=== PATIENT | male | born 1950 | race Caucasian/White ===

== ENCOUNTER → 2023-08-21 13:07 | Outpatient (REF) | payer MEDICARE, SELFPAY ==
[2023-08-21 13:41] LABS: % Basophils 0.8 % (0-2); % Eosinophils 1.3 % (0-6); % Immature Granulocytes 0.2 % (0-0.5); % Lymphocytes 26.3 % (20.5-51.1); % Monocytes 8.4 % (1.7-9.3); Absolute Basophils 0.1 10^3/uL (0-0.2); Absolute Eosinophils 0.1 10^3/uL (0-0.7); Absolute Lymphocytes 2.3 10^3/uL (1.2-3.4); Absolute Monocytes 0.7 10^3/uL (0.1-0.6); Absolute Neutrophils 5.4 10^3/uL (1.4-6.5); Hematocrit 41.1 % (39.0-52.0); Hemoglobin 14.6 g/dL (13.0-18.0); Mean Corp Hgb Conc. 35.5 g/dL (33.0-37.0); Mean Platelet Volume 9.4 fL (7.4-10.4); Nucleated Red Blood Cells % 0 % (-); Platelet Count 250 10^3/uL (130-400); Red Blood Cell Count 4.42 10^6/uL (4.70-6.10); Red Cell Dist. Width 13.5 % (11.5-14.5); White Blood Cell Count 8.5 10^3/uL (4.8-10.8)
[2023-08-21 13:54] LABS: ALT (SGPT) 23 U/L (0-50); AST (SGOT) 29 U/L (17-59); Albumin 4.5 g/dl (3.5-5.0); Alkaline Phosphatase 86 U/L (38-126); Direct Bilirubin 0.1 mg/dl (0.0-0.4); Total Bilirubin 1.7 mg/dl (0.2-1.3)
== END ==
LOC: REG 13:07
PROVIDERS: ATTENDING PHYSICIAN Internal Medicine Gastroenterology; FAMILY PHYSICIAN Internal Medicine
DX: R19.4 Change in bowel habit (principal); R17 Unspecified jaundice
CPT/HCPCS: 36415; 80076; 85025

== ENCOUNTER → 2023-09-29 06:31 | Day surgery (SDC) | payer MEDICARE, SELFPAY | LOC: GI 06:31 | PROVIDERS: ATTENDING PHYSICIAN Internal Medicine Gastroenterology; FAMILY PHYSICIAN Internal Medicine | DX: Z12.11 Encounter for screening for malignant neoplasm of colon (principal); D12.3 Benign neoplasm of transverse colon; K57.30 Diverticulosis of large intestine without perforation or abscess without bleeding; K64.8 Other hemorrhoids; R14.0 Abdominal distension (gaseous); R63.4 Abnormal weight loss; Z86.010 Personal history of colon polyps; Z98.890 Other specified postprocedural states | CPT/HCPCS: 45385; 43235; 88305 ==

== ENCOUNTER → 2024-08-26 09:30 | Outpatient (REF) | payer MEDICARE, SELFPAY ==
[2024-08-26 10:57] LABS: % Eosinophils 2.8 % (0-6); % Immature Granulocytes 0.3 % (0-0.5); % Lymphocytes 31.1 % (20.5-51.1); % Monocytes 9.4 % (1.7-9.3); % Neutrophils 55.4 % (42.2-75.2); Absolute Basophils 0.1 10^3/uL (0-0.2); Absolute Eosinophils 0.2 10^3/uL (0-0.7); Absolute Lymphocytes 2.2 10^3/uL (1.2-3.4); Absolute Monocytes 0.7 10^3/uL (0.1-0.6); Absolute Neutrophils 3.9 10^3/uL (1.4-6.5); Hematocrit 43.5 % (39.0-52.0); Mean Corp Hgb Conc. 34.5 g/dL (33.0-37.0); Mean Corpuscular Hgb 32.7 pg (27.0-31.0); Mean Corpuscular Volume 94.8 fL (80.0-94.0); Mean Platelet Volume 9.4 fL (7.4-10.4); Nucleated Red Blood Cells % 0 % (-); Platelet Count 229 10^3/uL (130-400); Red Blood Cell Count 4.59 10^6/uL (4.70-6.10); Red Cell Dist. Width 12.9 % (11.5-14.5)
[2024-08-26 11:23] LABS: Glycohemoglobin (HgbA1c) 6.5 % (4.0-5.6)
[2024-08-26 11:58] LABS: ALT (SGPT) 29 U/L (0-50); AST (SGOT) 28 U/L (17-59); Alkaline Phosphatase 75 U/L (38-126); Blood Urea Nitrogen 18 mg/dl (9-20); Calcium 9.8 mg/dl (8.4-10.2); Carbon Dioxide 24 mmol/L (22-30); Chloride 102 mmol/L (98-107); Glucose 120 mg/dl (70-99); HDL Cholesterol 40 mg/dl; LDL Cholesterol, Calculated 88 mg/dl; Potassium 5.4 mmol/L (3.5-5.1); Sodium 138 mmol/L (135-145); Total Bilirubin 1.9 mg/dl (0.2-1.3); Total Cholesterol 154 mg/dl (50-199); Total Protein 7.3 g/dl (6.3-8.2); Triglyceride 134 mg/dl (10-149); Very Low Density Lipoprotein 26 mg/dl (0-30); eGFR > 60.00
[2024-08-26 11:59] LABS: TSH 3.23 uIU/ml (0.47-4.68)
[2024-08-26 12:30] LABS: Uric Acid 8.3 mg/dl (3.5-8.5)
[2024-08-27 20:28] LABS: PSA Total 0.5 ng/mL (0.0-4.0)
== END ==
LOC: REG 09:30
PROVIDERS: ATTENDING PHYSICIAN Internal Medicine
DX: Z00.00 Encounter for general adult medical examination without abnormal findings (principal); I10 Essential (primary) hypertension; E79.0 Hyperuricemia without signs of inflammatory arthritis and tophaceous disease; E78.5 Hyperlipidemia, unspecified; E11.9 Type 2 diabetes mellitus without complications; N40.0 Benign prostatic hyperplasia without lower urinary tract symptoms
CPT/HCPCS: 36415; 80053; 80061; 83036; 84153; 84154; 84443; 84550; 85025

== ENCOUNTER 2025-03-22 08:34 | Emergency (ER) | payer MEDICARE, SELFPAY ==
[2025-03-22 08:35] VITALS: BP 188/91
--- NOTE | 2025-03-22 08:54 | ED.GENMED ---
History of Present Illness
<DONNA Arenas - Last Filed: 03/22/25 16:46>
General
Chief Complaint: Numbness
Source: patient
Exam Limitations: none
Time Seen by Provider: 03/22/25 08:40
Nursing documentation reviewed up to this point in time: agreed with
History of Present Illness
History of Present Illness:
74 yr old male presents with past medical history of Paget's disease, hypertension hyperlipidemia currently to the ED for evaluation of pain. Patient complains of pain that starts in his left lateral hip area and radiates under his left leg
associate with numbness and tingling. He feels numbness and tingling intermittently throughout the leg and on the top part of his foot.
He denies any injury. He can get some relief if he lays on his side with a pillow between his legs. He has been taking ibuprofen. He also reports he took an old oxycodone.
Past History
<DONNA Arenas - Last Filed: 03/22/25 16:46>
Past History
ED Past Medical History: HTN and Other (Paget's disease)
ED Past Surgical History: Orthopedic (Bone fragments in elbow.)
Social History
Tobacco: Former smoker
Alcohol: Occasional
Drug: None
Personal:
Living: with family
Employment: Employed
Phy Exam
<DONNA Arenas - Last Filed: 03/22/25 16:46>
General Physical Exam
General Presentation: no apparent distress
General age: appears stated age
General Skin: warm and dry
General Habitus: normal
General Mental: alert
General Hydration: appears well hydrated
Neurological Exam
Neurological Exam: alert, oriented x3, no motor deficits, no sensory deficits and other (Negative straight leg raise bilaterally no patellar reflexes bilaterally normal dorsiflexion plantarflexion able to heel toe walk)
[place] Coma Scale
Eye Opening: Spontaneous
Verbal Response: Oriented
Motor Response: Obeys Commands
GCS Total Score: 15
Musculoskeletal Exam
Musculoskeletal Exam: other (full rom to hip)
Skin Exam
Skin Exam: normal color and warm/dry
Psychiatric Exam
Psychiatric Exam: normal mood/affect
Course
<DONNA Arenas - Last Filed: 03/22/25 16:46>
Orders/Labs/Results
Orders:
Orders
03/22/25 09:00
CT Lumbar Spine W/o Iv Contras Urgent
Comment:
Reason For Exam: Pain
03/22/25 09:01
CT Pelvis W/o Iv Contrast Urgent
Comment:
Reason For Exam: left hip pain
03/22/25 10:50
Dexamethasone Sod Phosphate [Decadron] 10 mg IM NOW STA
03/22/25 11:19
Diazepam [Valium] 5 mg PO NOW STA
Lidocaine [Lidocaine 4% Patch] 1 patch TOPICAL NOW STA
Apply Lidocaine patch(s) to:: left hip/back
Vital Signs
Initial and Last Documented VS:
Initial Vital Signs
Temp Pulse Resp BP Pulse Ox
98.1 F 65 18 188/91 98
03/22/25 08:35 03/22/25 08:35 03/22/25 08:35 03/22/25 08:35 03/22/25 08:35
Last Documented Vital Signs
Temp Pulse Resp BP Pulse Ox
98.1 F 62 16 158/80 98
03/22/25 08:35 03/22/25 10:15 03/22/25 10:15 03/22/25 10:15 03/22/25 10:15
Physical Education Aide consulted with Physician
Name of Physician Consulted: Gabo
<Akira Ayon MD - Last Filed: 03/22/25 09:17>
Orders/Labs/Results
Orders:
Orders
03/22/25 09:00
CT Lumbar Spine W/o Iv Contras Urgent
Comment:
Reason For Exam: Pain
03/22/25 09:01
CT Pelvis W/o Iv Contrast Urgent
Comment:
Reason For Exam: left hip pain
03/22/25 10:50
Dexamethasone Sod Phosphate [Decadron] 10 mg IM NOW STA
03/22/25 11:19
Diazepam [Valium] 5 mg PO NOW STA
Lidocaine [Lidocaine 4% Patch] 1 patch TOPICAL NOW STA
Apply Lidocaine patch(s) to:: left hip/back
Vital Signs
Initial and Last Documented VS:
Initial Vital Signs
Temp Pulse Resp BP Pulse Ox
98.1 F 65 18 188/91 98
03/22/25 08:35 03/22/25 08:35 03/22/25 08:35 03/22/25 08:35 03/22/25 08:35
Last Documented Vital Signs
Temp Pulse Resp BP Pulse Ox
98.1 F 62 16 158/80 98
03/22/25 08:35 03/22/25 10:15 03/22/25 10:15 03/22/25 10:15 03/22/25 10:15
<DONNA Arenas - Last Filed: 03/22/25 16:46>
MDM/Problems Addressed
Differential Diagnosis Includes:
Not limited to muscle pain lumbar sprain strain sciatica, bursitis, arthritis
MDM/Problems Addressed:
Symptoms are consistent with sciatica. No neurological deficits. No acute x-ray findings. No evidence of infection. Case discussed with ED physician who evaluated patient patient was given IM Decadron will also give oral Valium and lidocaine
patch. Will place patient on steroid taper along with Valium at home discussed close outpatient follow with family doctor may need MRI. Will also give orthopedics.
Chronic conditions affecting care:
Paget's disease
<DONNA Arenas - Last Filed: 03/22/25 16:46>
*Radiology
Radiology exam reviewed: radiology read reviewed (No acute fracture of lumbar spine; no fracture )
*Pulse Oximetry
SaO2: 98
Oxygen Mode of Delivery: Room air
Patient hypoxic: no
*Critical Care Note
Total Time (30-74mins, 75-104mins- exclusive of procedures): Not Applicable
ED Attending Note
<DONNA Arenas - Last Filed: 03/22/25 16:46>
-
Portions of this chart may have been created with voice recognition software.� Occasional wrong word or��sound alike� substitutions may have occurred due to the inherent limitations of voice recognition software.
<Akira Ayon MD - Last Filed: 03/22/25 09:17>
ED Attending Note
Patient seen and examined by attending physician: Yes
I performed the substantive portion of visit, reviewed & personally made and approve the management plan that is documented in note by myself or LAURA.: Yes
ED Attending Note:
74-year-old male complaining of 4 to 5 days of left lateral hip/pelvic pain. No trauma. No significant repetitive motion. No history of same. No weakness in the leg. No bowel or bladder issues. No abdominal pain. No fever or chills.
On exam patient is nontoxic in no distress. He is holding his left knee flexed but is easily able to straighten the left leg. He is got great plantar and dorsiflexion of the feet. He is able to straight leg raise. And only had some pain with
straight leg raising on the left at severe hyperflexion of the hip. There is no cord no swelling good distal pulses and color. Abdomen is nontender. No pain with hip rotation. Knee without tenderness. Tenderness more towards the left buttock
and left posterior lateral hip behind the greater trochanter. He is able to bear full weight and walk.
Impression is nontraumatic muscular like pain to the left posterior lateral hip buttock area. Differential would include sciatica, bursitis or tendinitis. Nothing to support an infectious issue. Nothing to support an acute neurosurgical
emergency. He has good strength able to ambulate no bowel or bladder issues.
Patient will have a CT scan of this area given his Paget's disease to make sure there is no pathologic fracture. Will then be steroids pain management and follow-up
Discharge Plan
Departure
Patient Disposition: Home (Routine Discharge)
Date of Disposition: 03/22/25
Time of Disposition: 11:29
Patient with high blood pressure during this ER visit?: Yes
Condition: Fair
Covid-19: Not Applicable
Discharge Problem:
Sciatica
Instructions: Sciatica - ED (DC), BLOOD PRESSURE
Prescriptions:
New
lidocaine 5 % adhesive patch,medicated
1 patch topical DAILY Qty: 15 0RF
prednisone 10 mg Tablet
See Rx Instructions .ROUTE .COMPLEX Qty: 30 0RF
Rx Instructions:
Take By Mouth:
40 mg daily x3 days, 30 mg daily x3 days,
20 mg daily x3 days, 10 mg daily x3 days.
diazepam [Valium] 5 mg tablet
5 mg PO TID PRN (Reason: muscle spasm) Qty: 10 0RF
No Action
olmesartan 20 MG tablet
20 mg PO DAILY
clobetasol-emollient 15 GM cream
1 unit topical DAILY
acetaminophen [Tylenol Extra Strength] 500 MG tablet
1,000 mg PO PRN PRN (Reason: pain)
cholecalciferol (vitamin D3) [Vitamin D3] 2,000 UNIT capsule
2,000 unit PO DAILY
Voltaren:
1 tab PO BID PRN (Reason: pain)
sennosides [senna] 1 TABLET tablet
2 tab PO DAILY
Referrals:
Kaleb Berumen MD [Active, Orthopedics]
Hung Stroud MD [Family Provider, Internal Medicine]
Activity Restrictions/Additional Instructions:
As discussed a steroid taper was sent to your pharmacy take as directed starting tomorrow(you were given a dose of steroids here in the ER) in addition you may take Valium which is a muscle relaxer 5 mg every 8 hours as needed for muscle spasm.
This medication is a muscle relaxer and will cause drowsiness. No driving or drinking alcohol while taking this medication. In addition you may use lidocaine patches as previously recommended. Follow-up closely with your family doctor in the next
4 days and orthopedics if needed. you may need additional imaging. Return if any worsening of symptoms.
Interventions
Interventions:
*Risk Screen - Suicide Last Done: 03/22/25 08:35
*General Assessment Last Done: 03/22/25 08:35
*Neglect/Abuse Screening Last Done: 03/22/25 10:15
*ED- Fall Risk Assessment Last Done: 03/22/25 10:15
*ED COVID-19 Vaccine History Last Done: 03/22/25 10:15
*ED Influenza Vaccine History Last Done: 03/22/25 10:15
*Nursing Disposition Last Done: 03/22/25 11:43
ED- Neurological Assessment Last Done: 03/22/25 10:15
Discharge Date and Time
Discharge Date/Time: 03/22/25 11:44
Print Language: NORWEGI[place]
[2025-03-22 10:15] VITALS: BP 158/80; BMI 38.2
[2025-03-22] MEDS: DECADRON 10 MG IM (11:26)
[2025-03-22] MEDS: LIDOCAINE 4% PATCH 1 PATCH TOPICAL (11:26)
[2025-03-22] MEDS: VALIUM 5 MG PO (11:26)
== END 2025-03-22 11:44 | disposition home or self-care (01) ==
LOC: EMR 08:34
PROVIDERS: EMERGENCY PHYSICIAN Emergency Medicine; FAMILY PHYSICIAN Internal Medicine
DX: M54.32 Sciatica, left side (principal); I10 Essential (primary) hypertension; E78.5 Hyperlipidemia, unspecified; Z87.891 Personal history of nicotine dependence
CPT/HCPCS: 99284; 96372; 72131; 72192